=== PATIENT | female | born 1955 | race Caucasian/White ===

== ENCOUNTER 2018-02-07 22:59 | Emergency (ER) | payer MEDICAID ==
[~2018-02-07] VITALS: Ht 162.6 cm; Wt 58.2 kg
[2018-02-07 23:02] VITALS: BP 142/76; TEMP 97.7
[2018-02-07 23:30] LABS: BASO # 0.1 (0.0-0.2); BASO % 1.1 % (0.0-2.0); EOS # 0.4 (0.0-0.7); EOS % 4.2 % (0-4.0); GRAN # 3.6 (1.4-6.5); GRAN % 38.4 % (42.2-75.2); HEMOGLOBIN 14.3 g/dl (12.5-16.0); LYMPH # 4.5 (1.2-3.4); LYMPH % 48.3 % (20.0-51.0); MEAN CELL VOLUME 94 fl (80.0-100.0); MEAN CORPUSCULAR HEMOGLOBIN 33 pg (27.0-31.0); MEAN CORPUSCULAR HGB CONC 35 g/dl (33.0-37.0); MEAN PLATELET VOLUME 8.3 fl (7.4-10.4); MONO # 0.7 (0.1-0.6); MONO % 7.6 % (1.7-9.3); PLATELET COUNT 363 K/mm3 (130-400); RED BLOOD COUNT 4.37 M/mm3 (4.10-5.30); REDCELL DISTRIBUTION WIDTH-CV 13.8 % (11.5-14.5)
[2018-02-07 23:43] LABS: ALBUMIN 4.3 gm/dL (3.5-5.0); BILIRUBIN,TOTAL 0.2 mg/dL (0.0-1.0); C-REACTIVE PROTEIN 0.7 mg/dL (0.0-0.9); CALCIUM 9.4 mg/dL (8.4-10.2); CREATININE, serum 0.64 mg/dL (0.52-1.25); POTASSIUM 4.1 mmol/L (3.4-5.0); TOTAL PROTEIN 8.4 gm/dL (6.4-8.2)
[2018-02-08] MEDS ORDERED: PROTONIX 40MG T40 MG PO (00:13)
[2018-02-08] MEDS ORDERED: NORCO 325 MG-51 TAB PO (00:13)
[2018-02-08] MEDS ORDERED: ZOFRAN ODT4 MG PO (00:13)
[2018-02-08 00:50] VITALS: PULSE 91
== END 2018-02-08 00:50 | disposition home or self-care (01) ==
LOC: COL.ER 22:59
PROVIDERS: Emergency Medicine
DX: R10.11 Right upper quadrant pain (principal); I10 Essential (primary) hypertension; J44.9 Chronic obstructive pulmonary disease, unspecified; F17.210 Nicotine dependence, cigarettes, uncomplicated; Z90.710 Acquired absence of both cervix and uterus; Z90.89 Acquired absence of other organs; Z98.890 Other specified postprocedural states
CPT/HCPCS: J2270

== ENCOUNTER 2018-02-08 12:26 | Emergency (ER) | payer MEDICAID ==
[~2018-02-08] VITALS: Ht 162.6 cm; Wt 60.7 kg
[~2018-02-08 12:26] MED LIST: NORCO 325 MG-51 TAB PO; PROTONIX 40MG T40 MG PO; ZOFRAN ODT4 MG PO
[2018-02-08 12:29] VITALS: BP 143/95; TEMP 98.9
[2018-02-08 13:58] VITALS: PULSE 81
== END 2018-02-08 13:59 | disposition home or self-care (01) ==
LOC: COL.ER 12:26
DX: S62.397A Other fracture of fifth metacarpal bone, left hand, initial encounter for closed fracture (principal); F17.210 Nicotine dependence, cigarettes, uncomplicated; Z90.710 Acquired absence of both cervix and uterus; Z98.890 Other specified postprocedural states; W10.9XXA Fall (on) (from) unspecified stairs and steps, initial encounter
CPT/HCPCS: Q4021

== ENCOUNTER → 2018-02-17 | Outpatient (CLI) | payer MEDICAID | LOC: COL.RAD 10:19 | DX: K76.0 Fatty (change of) liver, not elsewhere classified (principal) ==

== ENCOUNTER → 2018-02-23 | Outpatient (CLI) | payer MEDICAID | LOC: COL.RAD 11:49 | DX: R10.11 Right upper quadrant pain (principal) | CPT/HCPCS: A9537 ==